=== PATIENT | male | born 1940 | race Caucasian/White ===

== ENCOUNTER 2022-01-08 15:01 | Observation (INO) ==
[2022-01-08] MEDS ORDERED: ONDANSETRON 4 MG/2 ML VIAL IV PRN (15:19)
[2022-01-08] MEDS ORDERED: MAGNESIUM SULF RIDER 4 GM/100 ML PREMIX IV PRN (15:19)
[2022-01-08] MEDS ORDERED: ACETAMINOPHEN 325 MG TABLET PO PRN (15:19)
[2022-01-08] MEDS ORDERED: SODIUM CHLORIDE 0.9% 1,000 ML IV SCH (15:30)
[2022-01-08] MEDS ORDERED: POTASSIUM CHLORIDE 20 MEQ TABLET PO PRN (16:02)
[2022-01-08] MEDS ORDERED: THEOPHYLLINE ER 300 MG TABLET PO SCH (17:00)
[2022-01-08] MEDS ORDERED: ALBUTEROL 2.5 MG/3 ML NEB RESP TX SCH (19:00)
[2022-01-08 20:17] VITALS: BP 115/74
[2022-01-09] MEDS ORDERED: LEVOTHYROXINE 150 MCG TABLET PO SCH (06:30)
[2022-01-09] MEDS ORDERED: LOSARTAN 50 MG TABLET PO SCH (09:00)
[2022-01-09] MEDS ORDERED: amLODIPine 5 MG TABLET PO SCH (09:00)
[2022-01-09] MEDS ORDERED: FINASTERIDE 5 MG TABLET PO SCH (09:00)
== END 2022-01-08 22:50 | disposition home or self-care (01) ==
LOC: N.5E
PROVIDERS: ADMIT Family Medicine; ATTEND Family Medicine